=== PATIENT | female | born 1965 | race Caucasian/White ===

== ENCOUNTER 2021-06-21 17:53 | Emergency (ER) | payer OTHER, MEDICARE ==
[2021-06-21] MEDS ORDERED: LIDOCAINE HCL MPF 1% 5ML VIAL ONE (18:06)
[2021-06-21 19:33] LABS: HEMATOCRIT 42.3 % (36-48); MEAN CORPUSCULAR HEMOGLOBIN 31.2 pg (27.0-33.0); MEAN CORPUSCULAR HGB CONC 34.5 g/dL (32.0-36.0); MEAN CORPUSCULAR VOLUME 90.4 fL (79-99); RED BLOOD CELL COUNT(AUTO) 4.68 MIL/uL (4.00-5.50); RED CELL DISTRIBUTION WIDTH 14.4 % (11.0-15.5); WHITE BLOOD COUNT (AUTO) 6.6 K/uL (4.8-10.8)
[2021-06-21 19:33] LABS: APPEARANCE,URINE Clear (CLEAR); BILIRUBIN,URINE Negative (NEGATIVE); COLOR,URINE Yellow (YELLOW); GLUCOSE, URINE (UA) Negative (NEGATIVE); KETONES,URINE Negative (NEGATIVE); LEUKOCYTE ESTERASE ,URINE Trace (NEGATIVE); NITRATE,URINE Negative (NEGATIVE); OCCULT BLOOD,URINE Trace (NEGATIVE); PROTEIN,URINE Negative (NEGATIVE); UROBILINOGEN,URINE 0.2 mg/dL (0.2-1.0)
[2021-06-21 19:41] LABS: CARBON DIOXIDE 29 mmol/L (21-32); CHLORIDE 106 mmol/L (101-111); CREATININE 0.5 mg/dL (0.5-1.5); GLOMERULAR FILTR. RATE CALC 136 mL/min (>60); GLUCOSE,RANDOM 88 mg/dL (70-105); POTASSIUM 3.9 mmol/L (3.5-5.1); SODIUM SERUM 143 mmol/L (136-145); UREA NITROGEN, BLOOD 12 mg/dL (7-18)
[2021-06-21 19:41] LABS: AMPHET/METH SCREEN,URINE NEGATIVE (NEGATIVE); BARBITURATE SCREEN, URINE NEGATIVE (NEGATIVE); BENZODIAZEPINES SCREEN,URINE NEGATIVE (NEGATIVE); CANNABINOID SCREEN,URINE NEGATIVE (NEGATIVE); COCAINE SCREEN,URINE POSITIVE (NEGATIVE); OPIATE SCREEN,URINE NEGATIVE (NEGATIVE); PHENCYCLIDINE SCREEN,URINE NEGATIVE (NEGATIVE)
[2021-06-21 19:42] LABS: BACTERIA,URINE Few /HPF (None Seen); MUCUS,URINE Few LPF (None Seen); SQUAMOUS EPITHELIAL CELL,UR Few /HPF (0-2)
[2021-06-21 19:47] LABS: ALANINE AMINOTRANSFERASE 35 U/L (12-78); ALBUMIN 4.3 g/dL (3.5-5.0); ALCOHOL, BLOOD 154 mg/dL (0-10); ASPARTATE AMINOTRANSFERASE 27 U/L (10-37); BILIRUBIN,TOTAL 0.6 mg/dL (0.2-1.0); TOTAL PROTEIN, SERUM 7.9 g/dL (6.0-8.3)
[2021-06-21 19:52] LABS: ACETAMINOPHEN < 1 mcg/mL (10-30); SALICYLATE < 2.8 mg/dL (2.8-20.0)
[2021-06-21] MEDS ORDERED: IBUPROFEN 400 MG TABLET ONE (20:05)
[2021-06-21] MEDS ORDERED: IBUPROFEN 200 MG TAB ONE (20:05)
[2021-06-21] MEDS ORDERED: LACTATED RINGERS 1000ML 1,000 ML IV ONE (20:30)
[2021-06-21] MEDS ORDERED: 0.9%NACL 1000ML 2,000 ML IV ONE (20:36)
[2021-06-22] MEDS ORDERED: ACETAMINOPHEN 500 MG TABLET ONE (07:30)
[2021-06-22] MEDS ORDERED: ACETAMINOPHEN 500 MG TABLET PO ONE (07:30)
[2021-06-22 08:28] VITALS: BP 122/62
== END 2021-06-22 10:34 | disposition home or self-care (01) ==
LOC: EDH 17:53
DX: S61.411A Laceration without foreign body of right hand, initial encounter (principal); R45.851 Suicidal ideations; F10.129 Alcohol abuse with intoxication, unspecified; Z20.822 Contact with and (suspected) exposure to COVID-19; Z79.1 Long term (current) use of non-steroidal anti-inflammatories (NSAID); X78.8XXA Intentional self-harm by other sharp object, initial encounter; Y93.89 Activity, other specified; Y92.89 Other specified places as the place of occurrence of the external cause; Y99.8 Other external cause status
CPT/HCPCS: 12002; 36415; 80053; 80305; 81001; 85027; 87635; 96360; 96361; 99283; C9803; G0481; J3490; J7030

== ENCOUNTER 2021-09-11 01:28 | Emergency (ER) | payer OTHER, MEDICARE ==
[~2021-09-11] VITALS: Ht 152.4 cm; Wt 44.0 kg
[2021-09-11 03:50] VITALS: BP 118/62
== END 2021-09-11 03:51 | disposition home or self-care (01) ==
LOC: EDH 01:28
DX: S51.811A Laceration without foreign body of right forearm, initial encounter (principal); X58.XXXA Exposure to other specified factors, initial encounter; Y93.89 Activity, other specified; Y92.89 Other specified places as the place of occurrence of the external cause; Y99.8 Other external cause status
CPT/HCPCS: 12001; 73100

== ENCOUNTER 2023-01-03 17:36 | Emergency (ER) | payer OTHER, MEDICARE ==
[~2023-01-03] VITALS: Ht 154.9 cm; Wt 52.2 kg
[2023-01-03 17:41] VITALS: BP 119/83; PULSE 72; RESP 16
== END 2023-01-03 17:55 | disposition left against medical advice (07) ==
LOC: EDH 17:36
DX: R56.9 Unspecified convulsions (principal); Z53.21 Procedure and treatment not carried out due to patient leaving prior to being seen by health care provider
CPT/HCPCS: 99281

== ENCOUNTER 2024-06-30 23:50 | Emergency (ER) | payer OTHER, MEDICARE ==
[~2024-06-30] VITALS: Ht 154.9 cm; Wt 45.4 kg
[2024-07-01] MEDS: ketOROlac 15MG/ML VIAL (15MG/ML) IM ONE (00:33)
--- NOTE | 2024-07-01 02:23 | ERN ---
General Chief Complaint: FOOT INJURY/PAIN Stated Complaint: C/O PAIN TO RT FOOT Time Seen by MD: 00:03 Time Seen by Midlevel: 00:03 Source: patient History of Present Illness Initial Comments The patient is a 51-year-old female being brought in by with a see [employer]'s [employer] for evaluation of right foot pain. The patient states she was noticed an increase in superficial veins that are painful to touch. Denies any direct injury to the area. Denies any other symptoms Allergies: Coded Allergies: No Known Drug Allergies (Unverified Allergy, Unknown, 06/21/21) Past Medical History Past Medical History: No Pertinent History Medical History Other: NON COPMPLAINCE Past Surgical History: Other Surgical History Other: RT LEG SX Family History Family History: Negative Social History Social History: Negative, Other ROS Dictation CONSTITUTIONAL: Negative except for HPI HEAD/FACE: Negative except for HPI EENT: Negative except for HPI RESPIRATORY: Negative except for HPI GASTROINTESTINAL/ABDOMINAL: Negative except for HPI GENITOURINARY: Negative except for HPI MUSCULOSKELETAL: Negative except for HPI INTEGUMENTARY: Negative except for HPI NEUROLOGICAL/PSYCH: Negative except for HPI HEMATOLOGIC/LYMPHATIC: Negative except for HPI All Systems Negative, Except as noted above. 13 point review of systems assessed and all negative except for above. Physical Exam Physical Exam Dictation Vital Signs reviewed General Appearance: Alert, oriented x 3, no acute distress, well developed, nourished. Head and Face: non-traumatic. Eyes: PERRL, pink conjunctivas, eyelid no trauma, anterior chamber with arcus senilis. Ears: Pinnas intact and no signs of trauma or erythema ear canals clear and no discharge TM no erythema Nose: No discharge, no bleeding. Oropharynx: Mouth normal, tongue pink, pharynx clear,no erythema, tonsils no exudates, no abscesses noted, mucous membrane moist Neck: Supple, non-tender, no thyromegaly, no masses, no JVD, no bruits Breast:Deferred Chest:No tenderness, no crepitus, no paradoxical movement, no retractions Lungs:Clear, well-ventilated, symmetric, no rales, no wheezing, no rhonchi, no stridor, good breath sounds bilaterally Heart: Regular rate, regular rhythm, no murmur, no gallops Vascular: no peripheral edema, Abdomen: Soft, positive bowel sounds, nondistended, no guarding, nontender, no rebound, no masses no hepatomegaly, no splenomegaly, no Mccormick's sign, no hernias. Rectal: Deferred Genital: Deferred Neurological: Normal speech, motor function intact, sensory function intact Musculoskeletal: Neck nontender, full range of motion, back nontender, full range of motion, Extremities: nontender, full range of motion , varicose veins to bilateral lower extremities Skin: Color pink, dry, no turgor, no rash, no lacerations, no abrasions, no contusions. Lymphatic: Deferred MDM MDM: Differential diagnosis: Fracture, contusion, bone spur There are no social concerns with this patient. Prescription drug management Prescriptions will include: None Medical management and examination interpretation discussions were had by me with other qualified healthcare professionals as indicated for the patient's care. ED Course Orders Procedure Category Date Status Time Foot Comp 3+Vws Rt RAD 07/01/24 Taken 00:16 Ankle Comp 3vws Rt RAD 07/01/24 Taken 00:16 Ketorolac PHA 07/01/24 Complete Tromethamine 15mg/Ml 00:30 Current Medications Medications (Trade) Dose Ordered Sig/Patricia Route PRN Reason Start Time Stop Time Status Last Admin Dose Admin Ketorolac Tromethamine (toRADol) 15 mg ONCE ONCE IM 07/01/24 00:30 07/01/24 00:31 DC 07/01/24 00:33 Vital Signs Date Time Temp Pulse Resp B/P (MAP) Pulse Ox O2 Delivery O2 Flow Rate FiO2 06/30/24 23:55 98.1 69 20 126/70 97 Room Air DX & DISP Disposition: Discharge Departure Impression: Primary Impression: Arthritis of right foot Condition: Stable Additional Instructions: Your right foot x-ray does not show any acute fracture or dislocation. There are chronic arthritic changes. Referrals: ERI VALERIO (PCP) Time of Disposition: 02:20 I have reviewed the case, and I agree with, Diagnosis and Plan I performed the substantive portion of the visit. I have reviewed and personally made and approve the management plan that is documented in the note by myself or the AISHWARYA. I acknowledge for responsibility for the patient's management plan. DAVION DEMARCO Jul 01, 2024 02:23
[2024-07-01 02:28] VITALS: BP 123/67; PULSE 70; RESP 17; TEMP 98.3; O2SAT 97
--- NOTE | 2024-07-01 10:07 | HMCIMG ---
Exam Type: FOOT COMP 3+VWS RT, ANKLE COMP 3VWS RT Clinical Information: persistent pain Comparison: None Findings and impression: The bone examination shows no acute fractures or dislocations are seen. Old healed fractures of the distal tibia and fibula are seen. Status post arthrodesis of the first metatarsophalangeal joint. Degenerative changes of the other joints of the toes. No acute pathology. No bone destruction.
== END 2024-07-01 02:29 ==
LOC: EEVIPCON 23:50 → EDH 23:50
DX: M19.071 Primary osteoarthritis, right ankle and foot (principal)
CPT/HCPCS: 99284; 73610; 73630; 96372; J1885